=== PATIENT | female | born 1950 | race Caucasian/White ===

== ENCOUNTER 2021-03-13 21:38 | Inpatient (IN) | payer MEDICARE, OTHER ==
[~2021-03-13] VITALS: Ht 162.6 cm; Wt 78.0 kg
--- NOTE | 2021-03-13 21:41 | NUR ---
Patient BIB pvt ambulance from another acute facility, [facility]. A/Ox4, no acute psychiatric episodes observed upon arrival. Respiratory even and unlabored no cough no sob. No cardiovascular distress, denies any cp, palpitations. No n/v/d or any gu distress. Patient in bed at lowest position, sr upx2. Room cleared to suit for patient safety per protocol. Security unable to sit with patient at this time. user support analyst supervisor aware. Patient kept in line of sight of RN for observation at all time.
[2021-03-13] MEDS ORDERED: DIVA-78 PO (21:59)
[2021-03-13] MEDS ORDERED: TRAZ-182 PO (21:59)
[2021-03-13] MEDS ORDERED: APIX5TAB PO (21:59)
[2021-03-13] MEDS ORDERED: ESTR0.5T PO (21:59)
[2021-03-13] MEDS ORDERED: ACET-2154 PO ×2 (21:59)
[2021-03-13] MEDS ORDERED: ACET-2154 RC (21:59)
[2021-03-13] MEDS ORDERED: METO25TA6 PO (21:59)
[2021-03-13] MEDS ORDERED: ATOR20TA PO (21:59)
[2021-03-13] MEDS ORDERED: AMIO200T5 PO (21:59)
[2021-03-13] MEDS ORDERED: INSU100V11 (21:59)
[2021-03-13] MEDS ORDERED: ONDA4SYR IVP (21:59)
[2021-03-13] MEDS ORDERED: INSU100V11 SUBCUT (21:59)
[2021-03-13] MEDS ORDERED: ESCI20TA44 PO (21:59)
[2021-03-13] MEDS ORDERED: INSU100V7 SQ (21:59)
[2021-03-13] MEDS ORDERED: GLUC1KIT IM (21:59)
[2021-03-13] MEDS ORDERED: DEXT-164 PO (21:59)
--- NOTE | 2021-03-13 22:25 | NUR ---
Report given to KJ Bhatt
[2021-03-13] MEDS ORDERED: BLOOD SUGAR DIAGNOSTIC 1 EACH STRIP VI ONE (22:30)
[2021-03-13] MEDS ORDERED: ACETAMINOPHEN 325 MG TABLET PO PRN ×3 (22:30→23:30)
[2021-03-13] MEDS ORDERED: LORAZEPAM 1 MG TABLET PO PRN (22:30)
[2021-03-13] MEDS ORDERED: MAGNESIUM HYDROXIDE 30 ML LIQUID UDC PO PRN (22:30)
[2021-03-13] MEDS ORDERED: ZOLPIDEM 5 MG TABLET PO PRN (22:30)
[2021-03-13] MEDS ORDERED: MAG HYDROX/AL HYDROX/SIMETH 30 ML LIQUID UDC PO PRN (22:30)
--- NOTE | 2021-03-13 22:54 | NUR ---
Patient transported to MHU in stable condition.
--- NOTE | 2021-03-13 23:00 | NUR ---
Patient Rashida Eason admitted to MHU from ED@ 2250. Report received from KJ Al. Patient Awake & Oriented x3. Patient ambulatory with steady gate. No complaints of pain or discomfort. Patient denies any SOB or respiratory distress. Pacemaker in left chest. Skin is intact. PERRLA. Patient is continent with urine and bowels. Patient is able to verbalize all needs. Will continue to monitor closely.
[2021-03-13 23:02] VITALS: BP 123/55
[2021-03-13] MEDS ORDERED: DEXTROSE 50% 50 ML DISP.SYRIN IV PRN (23:30)
[2021-03-13] MEDS ORDERED: ACETAMINOPHEN 325 MG TABLET PO SCH (23:30)
[2021-03-14] MEDS: INSULIN REGULAR, HUMAN 300 UNIT/3 ML VIAL SQ PRN ×6 (00:49→21:00)
[2021-03-14] MEDS: BLOOD SUGAR DIAGNOSTIC 1 EACH STRIP VI SCH ×4 (06:38→20:57)
[2021-03-14 07:23] LABS: BASOPHILS # (AUTO) 0.1 K/uL (0.0-8.0); BASOPHILS % (AUTO) 1.2 % (0.0-2.0); EOSINOPHILS # (AUTO) 0.3 K/uL (0.0-0.7); EOSINOPHILS % (AUTO) 2.9 % (0.0-7.0); HEMATOCRIT 40.4 % (31.2-41.9); HEMOGLOBIN 13.4 g/dL (10.9-14.3); LYMPHOCYTES # (AUTO) 1.6 K/uL (20.0-40.0); LYMPHOCYTES % (AUTO) 14.4 % (20.5-51.5); MEAN CORPUSCULAR HGB CONC 33 g/dL (32.3-35.6); MEAN CORPUSCULAR VOLUME 87.5 fL (75.5-95.3); MONOCYTES # (AUTO) 1.3 K/uL (2.0-10.0); MONOCYTES % (AUTO) 11.2 % (0.0-11.0); NEUTROPHILS % (AUTO) 70.3 % (38.5-71.5); PLATELET COUNT (AUTO) 307 K/uL (179-408); RED BLOOD CELL COUNT(AUTO) 4.62 MIL/uL (3.63-4.92); WHITE BLOOD COUNT (AUTO) 11.3 K/uL (3.8-11.8)
[2021-03-14 07:30] VITALS: BP 104/53
[2021-03-14 07:38] LABS: BILIRUBIN,TOTAL 0.2 mg/dL (0.2-1.0); CREATININE 0.9 mg/dL (0.6-1.3); POTASSIUM 4.5 mmol/L (3.5-5.1)
[2021-03-14] MEDS: ESTRADIOL 1 MG TABLET PO SCH (09:25)
[2021-03-14] MEDS: AMIODARONE HCL 200 MG TABLET PO SCH ×2 (09:25→17:07)
[2021-03-14] MEDS: APIXABAN 5 MG TABLET PO SCH ×2 (09:26→17:08)
[2021-03-14] MEDS: METOPROLOL TARTRATE 25 MG TABLET PO SCH ×2 (09:26→17:07)
[2021-03-14] MEDS: ESCITALOPRAM OXALATE 10 MG TABLET PO SCH (10:11)
[2021-03-14] MEDS: DIVALPROEX ER 500 MG TAB.SR.24H PO SCH ×2 (10:11→21:02)
--- NOTE | 2021-03-14 10:13 | NUR ---
Firearms Report: Vegetable Loader Machine Operator completed and submitted a [employer] firearms report for 5150 grave disability certification. A copy of report has been placed in patient chart.
--- NOTE | 2021-03-14 11:12 | NUR ---
SW Family Contact: Patient's son Shawn ([phone]) is involved in patient's care. This SW contacted patient's son Shawn ([phone]) to discuss treatment and discharge plan. This SW left a voicemail.
--- NOTE | 2021-03-14 11:12 | NUR ---
Initial Discharge Plan: Patient will need a nursing facility or wants to go to a Motel. Patient's son Shawn ([phone]) is involved in patient's care. This SW contacted patient's son Shawn ([phone]) to discuss treatment and discharge plan. This SW left a voicemail. This SW will coordinate discharge plan with MD, treatment team, and family to coordinate discharge plan.
[2021-03-14] MEDS ORDERED: INSULIN REGULAR, HUMAN 300 UNIT/3 ML VIAL SQ ONE (12:15)
--- NOTE | 2021-03-14 12:22 | NUR ---
SW Family Contact: This SW contacted patient's cousin Chetna ([phone]) to discuss treatment and discharge plan and was unavailable at this time. Mailbox was full.
--- NOTE | 2021-03-14 12:24 | NUR ---
SW Family Contact: This SW contacted patient's son Shawn ([phone]) and left a voicemail to discuss discharge and treatment plan.
--- NOTE | 2021-03-14 13:00 | NUR ---
Patient's blood sugar 411. Patient report no signs of hyperglycemia. Patient is noncompliant with diabetic diet, she recently was eating a bowl of fruit. Patient was provided with education about diabetic diet and how diet affects blood sugar levels, able to verbalize understanding. Tessa Ledesma NP, notified. Orders given to administer insulin per sliding scale plus an additional 4 units, and to change sliding scale from mild to moderate. Orders noted and carried out.
[2021-03-14 15:45] VITALS: BP 110/52
[2021-03-14 20:10] VITALS: BP 143/66
[2021-03-14] MEDS: QUETIAPINE FUMARATE 25 MG TABLET PO SCH (21:02)
[2021-03-14] MEDS: ATORVASTATIN 20 MG TABLET PO SCH (21:02)
--- NOTE | 2021-03-15 02:06 | NUR ---
RECEIVED PATIENT IN ACTIVITY ROOM INTERACTING WITH PEERS. NOTED DEPRESSED BUT KEPT DRAWING ON A PIECE OF PAPER. REFUSED TO SAY WHEN ASKED IF SHE HAS SI/HI. BLOOD SUGAR CHECKS DONE AND INSULIN PER SLIDING SCALE WAS GIVEN AFTER A SNACK WAS GIVEN.NO HYPOGLYCEMIA NOTED. COMPLIANT WITH OTHER MEDS AND CARE. WILL CONTINUE TO MONITOR.
[2021-03-15] MEDS: BLOOD SUGAR DIAGNOSTIC 1 EACH STRIP VI SCH ×4 (06:37→20:34)
--- NOTE | 2021-03-15 06:50 | NUR ---
SLEPT FOR 6:30 HOURS. BLOOD SUGAR CHECK THIS MORNING WAS 298
[2021-03-15 07:30] VITALS: BP 128/55
[2021-03-15] MEDS: ESTRADIOL 1 MG TABLET PO SCH (08:54)
[2021-03-15] MEDS: ESCITALOPRAM OXALATE 10 MG TABLET PO SCH (08:55)
[2021-03-15] MEDS: METOPROLOL TARTRATE 25 MG TABLET PO SCH ×2 (08:55→17:00)
[2021-03-15] MEDS: AMIODARONE HCL 200 MG TABLET PO SCH (08:55)
[2021-03-15] MEDS: APIXABAN 5 MG TABLET PO SCH ×2 (08:57→17:00)
[2021-03-15] MEDS: INSULIN REGULAR, HUMAN 300 UNIT/3 ML VIAL SQ PRN ×4 (08:58→20:36)
[2021-03-15] MEDS: DIVALPROEX ER 500 MG TAB.SR.24H PO SCH ×2 (08:59→20:44)
--- NOTE | 2021-03-15 10:30 | NUR ---
SW Family Contact: This SW attempted to contact patient's cousin Chetna ([phone]) to discuss treatment and discharge plan and was unavailable at this time. Mailbox was full.
--- NOTE | 2021-03-15 10:31 | NUR ---
SW Family Contact: This SW contacted patient's son Shawn ([phone]) and left a voicemail for the second time to discuss discharge and treatment plan.
--- NOTE | 2021-03-15 13:12 | NUR ---
SW Family Contact: This SW spoke with patient's son Shawn ([phone]) who stated that he is unsure if pt gave his 401k money to a stranger that she was dating through Facebook. Son stated that he assumes that pt has been spending that money on herself and flying to [place] and going shopping. Son stated that pt does not have any money on her currently and possibly has $250. He reported that she might need a nursing facility. This SW will transfer this information to the treatment team.
--- NOTE | 2021-03-15 15:07 | NUR ---
SW Individual Therapy: hair worker met with patient for brief counseling to help address patients presenting problem disorganized thought content. Patient does appear to be disorganized. She appeared to be withdrawn and isolative did not want to talk to this SW. Patient was in bed with her blank covering her face and did not want to maintain proper eye contact. This SW unable to conduct therapy at this time.
[2021-03-15 15:45] VITALS: BP 116/45
[2021-03-15 20:12] VITALS: BP 121/49
[2021-03-15] MEDS: ATORVASTATIN 20 MG TABLET PO SCH (20:32)
[2021-03-15] MEDS: QUETIAPINE FUMARATE 25 MG TABLET PO SCH (20:32)
[2021-03-16] MEDS: BLOOD SUGAR DIAGNOSTIC 1 EACH STRIP VI SCH ×4 (06:19→20:37)
--- NOTE | 2021-03-16 06:25 | NUR ---
GPS: Pt.slept for 6.30 last night. Blood sugar now is 229mg/dl. Remains irritable and with labile mood. Re-directed prn. Safety emphasized. Will continue to monitor.
[2021-03-16 07:30] VITALS: BP 118/50
--- NOTE | 2021-03-16 07:30 | NUR ---
Received report from MICKEY Raya. All questions, comments, and concerns were addressed. Received patient awake, alert and oriented. Bed is in low and locked position.
[2021-03-16] MEDS: METOPROLOL TARTRATE 25 MG TABLET PO SCH ×2 (08:48→16:30)
[2021-03-16] MEDS: ESCITALOPRAM OXALATE 10 MG TABLET PO SCH (08:48)
[2021-03-16] MEDS: DIVALPROEX ER 500 MG TAB.SR.24H PO SCH ×2 (08:48→20:14)
[2021-03-16] MEDS: AMIODARONE HCL 200 MG TABLET PO SCH (08:49)
[2021-03-16] MEDS: ESTRADIOL 1 MG TABLET PO SCH (08:49)
[2021-03-16] MEDS: APIXABAN 5 MG TABLET PO SCH ×2 (08:49→16:25)
[2021-03-16] MEDS: INSULIN REGULAR, HUMAN 300 UNIT/3 ML VIAL SQ PRN ×4 (08:56→20:40)
--- NOTE | 2021-03-16 13:00 | NUR ---
BS 378. 15 units insulin administered per sliding scale. patient is showing no s/s of hyperglycemia. she is alert and oriented. patient provided with education about maintaining diabetic diet and not snacking between meals to prevent blood sugar spikes, patient able to verbalize understanding. patient educated about symptoms of hyperglycemia and instructed to inform staff if these occur, able to verbalize understanding.
--- NOTE | 2021-03-16 14:56 | NUR ---
SW Family Contact: This SW called patient's son Shawn ([phone]) and left a detailed voicemail if he was able to locate who the DPOA is. This SW requested to call back.
--- NOTE | 2021-03-16 15:06 | NUR ---
SW Note: This SW discussed discharge plan with pt and she stated that she is willing to go to a nursing facility. This SW will work with the doctor to figure out which nursing facility this SW can recommend.
--- NOTE | 2021-03-16 15:18 | NUR ---
SW Family Contact: This SW received patient's son Shawn ([phone]) voicemail who stated that there is no DPOA.
--- NOTE | 2021-03-16 15:29 | NUR ---
SW Family Contact: This SW spoke with patient's son Shawn ([phone]) who is agreeable with patient going to a nursing facility. He stated that as a family they have been dealing with her going in and out of facilities. Shawn shared some background of pt and shared that she had a stroke in 2012 and has had past trauma.
--- NOTE | 2021-03-16 15:31 | NUR ---
LOBITO Individual Therapy: submarine worker met with patient for brief counseling to help address patients presenting problem disorganized thought content. Patient appeared disorganized. She appeared with labile mood and was angry stating "I will not go back to [place]". LOBITO was unable to conduct therapy at this time.
[2021-03-16 16:00] VITALS: BP 104/41
--- NOTE | 2021-03-16 18:00 | NUR ---
BS 221. 6 units insulin administered per sliding scale. patient is showing no s/s of hyperglycemia. she is alert and oriented. patient provided with education about maintaining diabetic diet and not snacking between meals to prevent blood sugar spikes, patient able to verbalize understanding. patient educated about symptoms of hyperglycemia and instructed to inform staff if these occur, able to verbalize understanding.
--- NOTE | 2021-03-16 18:41 | NUR ---
patient is alert and oriented. she is cooperative, redirectable, noted with appropriate interaction. patient is guarded and withdrawn. patient denies SI/HI, denies AH/VH. patient is adherent with medication, no adverse reaction noted. patient is able to provide care for self independently. patient encouraged to participate in the unit groups and therapeutic milieu.
[2021-03-16 20:11] VITALS: BP 137/81
[2021-03-16] MEDS: QUETIAPINE FUMARATE 100 MG TABLET PO SCH (20:14)
[2021-03-16] MEDS: ATORVASTATIN 20 MG TABLET PO SCH (20:14)
[2021-03-16] MEDS ORDERED: QUETIAPINE FUMARATE 25 MG TABLET PO SCH (21:00)
[2021-03-17] MEDS: BLOOD SUGAR DIAGNOSTIC 1 EACH STRIP VI SCH ×4 (06:16→20:26)
[2021-03-17 07:30] VITALS: BP 151/69
[2021-03-17] MEDS: INSULIN REGULAR, HUMAN 300 UNIT/3 ML VIAL SQ PRN ×4 (08:20→20:29)
[2021-03-17] MEDS: DIVALPROEX ER 500 MG TAB.SR.24H PO SCH ×2 (08:24→20:03)
[2021-03-17] MEDS: ESCITALOPRAM OXALATE 10 MG TABLET PO SCH (08:24)
[2021-03-17] MEDS: METOPROLOL TARTRATE 25 MG TABLET PO SCH ×2 (08:25→16:29)
[2021-03-17] MEDS: ESTRADIOL 1 MG TABLET PO SCH (08:26)
[2021-03-17] MEDS: AMIODARONE HCL 200 MG TABLET PO SCH (08:26)
[2021-03-17] MEDS: APIXABAN 5 MG TABLET PO SCH ×2 (08:28→16:30)
[2021-03-17 16:00] VITALS: BP 121/49
[2021-03-17 19:54] VITALS: BP 126/51
[2021-03-17] MEDS: QUETIAPINE FUMARATE 100 MG TABLET PO SCH (20:03)
[2021-03-17] MEDS: ATORVASTATIN 20 MG TABLET PO SCH (20:03)
[2021-03-18] MEDS: BLOOD SUGAR DIAGNOSTIC 1 EACH STRIP VI SCH ×4 (06:22→20:10)
[2021-03-18] MEDS: INSULIN REGULAR, HUMAN 300 UNIT/3 ML VIAL SQ PRN ×4 (08:09→20:12)
[2021-03-18] MEDS: ESTRADIOL 1 MG TABLET PO SCH (08:16)
[2021-03-18] MEDS: AMIODARONE HCL 200 MG TABLET PO SCH (08:16)
[2021-03-18] MEDS: ESCITALOPRAM OXALATE 10 MG TABLET PO SCH (08:17)
[2021-03-18] MEDS: DIVALPROEX ER 500 MG TAB.SR.24H PO SCH ×2 (08:17→20:03)
[2021-03-18] MEDS: METOPROLOL TARTRATE 25 MG TABLET PO SCH ×2 (08:17→18:02)
[2021-03-18] MEDS: APIXABAN 5 MG TABLET PO SCH ×2 (08:25→18:03)
[2021-03-18 11:14] VITALS: BP 106/56
--- NOTE | 2021-03-18 11:25 | NUR ---
LOBITO PC Hearing: Patient had 5250 probable cause hearing today and it was upheld for grave disability.
[2021-03-18 17:00] VITALS: BP 112/58
[2021-03-18] MEDS: QUETIAPINE FUMARATE 100 MG TABLET PO SCH (20:03)
[2021-03-18] MEDS: ATORVASTATIN 20 MG TABLET PO SCH (20:03)
[2021-03-18 20:25] VITALS: BP 128/50
[2021-03-18] MEDS ORDERED: INSULIN GLARGINE,HUM 300 UNITS/3 ML CARTRIDGE SQ SCH (21:00)
--- NOTE | 2021-03-19 05:53 | NUR ---
GPS: Remain calm and cooperative. no agitation noted. no behavior issue noted. resting in bed comfortably. continue plan of care.
[2021-03-19] MEDS: BLOOD SUGAR DIAGNOSTIC 1 EACH STRIP VI SCH ×4 (06:17→21:11)
--- NOTE | 2021-03-19 06:21 | NUR ---
slept 6 hrs through the night.
[2021-03-19 07:30] VITALS: BP 121/53
[2021-03-19] MEDS: DIVALPROEX ER 500 MG TAB.SR.24H PO SCH ×2 (08:38→21:11)
[2021-03-19] MEDS: ESCITALOPRAM OXALATE 10 MG TABLET PO SCH (08:39)
[2021-03-19] MEDS: METOPROLOL TARTRATE 25 MG TABLET PO SCH ×2 (08:39→17:35)
[2021-03-19] MEDS: AMIODARONE HCL 200 MG TABLET PO SCH (08:40)
[2021-03-19] MEDS: ESTRADIOL 1 MG TABLET PO SCH (08:40)
[2021-03-19] MEDS: APIXABAN 5 MG TABLET PO SCH ×2 (08:41→17:34)
[2021-03-19] MEDS: INSULIN REGULAR, HUMAN 300 UNIT/3 ML VIAL SQ PRN ×4 (08:43→21:19)
[2021-03-19 16:00] VITALS: BP 155/55
--- NOTE | 2021-03-19 17:30 | NUR ---
Gps/Production Staff Worker- Noted patient small amount of emesis during dinner , claimed the soup made her sick, was able to complete her dinner after. Stayed in the dinning room most of the afternoon . Patient still mentioning , her Fiancee here in [place].
[2021-03-19 20:00] VITALS: BP 167/77
[2021-03-19] MEDS ORDERED: INSULIN GLARGINE,HUM 300 UNITS/3 ML CARTRIDGE SQ SCH (21:00)
[2021-03-19] MEDS: ATORVASTATIN 20 MG TABLET PO SCH (21:11)
[2021-03-19] MEDS: QUETIAPINE FUMARATE 100 MG TABLET PO SCH (21:11)
[2021-03-20] MEDS: BLOOD SUGAR DIAGNOSTIC 1 EACH STRIP VI SCH ×4 (06:55→20:25)
[2021-03-20] MEDS: INSULIN REGULAR, HUMAN 300 UNIT/3 ML VIAL SQ PRN ×4 (07:49→20:32)
[2021-03-20] MEDS: ESCITALOPRAM OXALATE 10 MG TABLET PO SCH (08:08)
[2021-03-20] MEDS: ESTRADIOL 1 MG TABLET PO SCH (08:08)
[2021-03-20] MEDS: AMIODARONE HCL 200 MG TABLET PO SCH (08:09)
[2021-03-20] MEDS: DIVALPROEX ER 500 MG TAB.SR.24H PO SCH ×2 (08:09→20:24)
[2021-03-20] MEDS: METOPROLOL TARTRATE 25 MG TABLET PO SCH ×2 (08:12→16:48)
[2021-03-20 08:25] VITALS: BP 116/67
[2021-03-20] MEDS: APIXABAN 5 MG TABLET PO SCH ×2 (08:53→16:50)
[2021-03-20] MEDS: INSULIN GLARGINE,HUM 300 UNITS/3 ML CARTRIDGE SQ SCH ×2 (11:30→20:33)
[2021-03-20 20:13] VITALS: BP 118/64
[2021-03-20] MEDS: ATORVASTATIN 20 MG TABLET PO SCH (20:24)
[2021-03-20] MEDS: QUETIAPINE FUMARATE 100 MG TABLET PO SCH (20:24)
--- NOTE | 2021-03-20 21:00 | NUR ---
Received pt resting in bed, talking on the phone. No acute distress noted. Denies pain/ discomfort. Denies SI. Accucheck 230, insulin given as per sliding scale. Due meds given as ordered. Safety measures maintained. Will continue to monitor.
[2021-03-21] MEDS: BLOOD SUGAR DIAGNOSTIC 1 EACH STRIP VI SCH ×4 (06:44→21:29)
[2021-03-21 07:30] VITALS: BP 149/68
[2021-03-21] MEDS: DIVALPROEX ER 500 MG TAB.SR.24H PO SCH ×2 (08:27→20:56)
[2021-03-21] MEDS: ESCITALOPRAM OXALATE 10 MG TABLET PO SCH (08:28)
[2021-03-21] MEDS: AMIODARONE HCL 200 MG TABLET PO SCH (08:28)
[2021-03-21] MEDS: ESTRADIOL 1 MG TABLET PO SCH (08:29)
[2021-03-21] MEDS: METOPROLOL TARTRATE 25 MG TABLET PO SCH ×2 (08:30→16:52)
[2021-03-21] MEDS: APIXABAN 5 MG TABLET PO SCH ×2 (08:40→16:51)
[2021-03-21] MEDS: INSULIN GLARGINE,HUM 300 UNITS/3 ML CARTRIDGE SQ SCH ×2 (08:41→21:33)
[2021-03-21] MEDS: INSULIN REGULAR, HUMAN 300 UNIT/3 ML VIAL SQ PRN ×4 (08:42→21:34)
--- NOTE | 2021-03-21 12:07 | NUR ---
SNF Referral: This SW faxed patient's clinicals to Admin Cathie ([phone]) from [facility] for possible placement. This SW faxed H & P, progress notes, and medication list.
[2021-03-21 15:03] VITALS: BP 132/47
--- NOTE | 2021-03-21 15:20 | NUR ---
SNF Contact: This SW received a call from Admin Cathie ([phone]) who stated that pt is accepted at [facility].
--- NOTE | 2021-03-21 15:20 | NUR ---
LOBITO Individual Therapy: expeller worker met with patient for brief counseling to help address patient's presenting problem disorganized thought content. Patient continued to present with disorganized thought content. Patient was expressed that she is "late for her job". Patient unable to have proper conversation at this time.
[2021-03-21 20:22] VITALS: BP 136/62
[2021-03-21] MEDS: ATORVASTATIN 20 MG TABLET PO SCH (20:56)
[2021-03-21] MEDS: QUETIAPINE FUMARATE 100 MG TABLET PO SCH (20:56)
[2021-03-22 07:30] VITALS: BP 108/57
[2021-03-22] MEDS: BLOOD SUGAR DIAGNOSTIC 1 EACH STRIP VI SCH ×4 (07:53→20:57)
[2021-03-22] MEDS: INSULIN REGULAR, HUMAN 300 UNIT/3 ML VIAL SQ PRN ×4 (07:56→20:59)
[2021-03-22] MEDS: ESCITALOPRAM OXALATE 10 MG TABLET PO SCH (08:26)
[2021-03-22] MEDS: ESTRADIOL 1 MG TABLET PO SCH (08:26)
[2021-03-22] MEDS: DIVALPROEX ER 500 MG TAB.SR.24H PO SCH ×2 (08:26→20:56)
[2021-03-22] MEDS: AMIODARONE HCL 200 MG TABLET PO SCH (08:27)
[2021-03-22] MEDS: APIXABAN 5 MG TABLET PO SCH ×2 (08:30→17:23)
[2021-03-22] MEDS: METOPROLOL TARTRATE 25 MG TABLET PO SCH ×2 (09:15→17:19)
[2021-03-22] MEDS: INSULIN GLARGINE,HUM 300 UNITS/3 ML CARTRIDGE SQ SCH ×2 (09:17→21:14)
--- NOTE | 2021-03-22 10:52 | NUR ---
SW Family Contact: This SW contacted patient's son Shawn ([phone]) and left a voicemail that patient is accepted at [facility].
--- NOTE | 2021-03-22 11:48 | NUR ---
SW SNF Referral: This SW faxed patient's clinicals to Alba carranza from [facility] ([phone]) for placement option. This SW faxed H & P, progress notes, and medication list.
--- NOTE | 2021-03-22 15:01 | NUR ---
NO S/S OF HYPO/HYPERGLYCEMIC REACTIONS AT THIS TIME COMPLIANT WITH MEDICATIONS AND CARE GETS EASILY IRRITATED BUT IS COOPERATIVE ENCOURAGED TO GO INTO THE D/ROOM AND PATICIPATE AND SHE EXPRESSED UNDERSTANDING.
[2021-03-22 15:21] VITALS: BP 122/49
--- NOTE | 2021-03-22 18:29 | NUR ---
Patient is left sitting on the side of bed. Pt complained of tooth ache from chipped crown. Gave Tylenol. Safety implemented. Will endorse.
[2021-03-22 20:24] VITALS: BP 123/48
[2021-03-22] MEDS: QUETIAPINE FUMARATE 100 MG TABLET PO SCH (20:56)
[2021-03-22] MEDS: ATORVASTATIN 20 MG TABLET PO SCH (21:13)
--- NOTE | 2021-03-23 01:46 | NUR ---
PATIENT NOTED SITTING IN THE DAY ROOM. SHE IS CALM AT THIS TIME. SHE WAS OFFERED AMBIEN FOR INSOMNIA, BUT PATIENT REFUSED. WILL CONTINUE TO MONITOR,
[2021-03-23] MEDS: BLOOD SUGAR DIAGNOSTIC 1 EACH STRIP VI SCH ×4 (07:09→20:43)
[2021-03-23 07:30] VITALS: BP 126/70
[2021-03-23] MEDS: APIXABAN 5 MG TABLET PO SCH ×2 (08:15→17:46)
[2021-03-23] MEDS: ESCITALOPRAM OXALATE 10 MG TABLET PO SCH (08:15)
[2021-03-23] MEDS: DIVALPROEX ER 500 MG TAB.SR.24H PO SCH ×2 (08:15→20:43)
[2021-03-23] MEDS: AMIODARONE HCL 200 MG TABLET PO SCH (08:15)
[2021-03-23] MEDS: ESTRADIOL 1 MG TABLET PO SCH (08:16)
[2021-03-23] MEDS: INSULIN GLARGINE,HUM 300 UNITS/3 ML CARTRIDGE SQ SCH (08:17)
[2021-03-23] MEDS: INSULIN REGULAR, HUMAN 300 UNIT/3 ML VIAL SQ PRN ×4 (08:19→20:45)
[2021-03-23] MEDS: METOPROLOL TARTRATE 25 MG TABLET PO SCH ×2 (08:27→17:50)
--- NOTE | 2021-03-23 11:33 | NUR ---
SW Note: This SW reported to pt that she got accepted to [facility] and she would want to go there.
--- NOTE | 2021-03-23 11:33 | NUR ---
SW SNF Contact: This SW spoke with Alba carranza from [facility] ([phone]) who stated pt is accepted.
--- NOTE | 2021-03-23 11:48 | NUR ---
SW Family Contact: This SW contacted patient's son Shawn ([phone]) and left a voicemail that pt will be discharged 03/24 to [facility] instead because patient wanted to go there.
--- NOTE | 2021-03-23 14:24 | NUR ---
SW Individual Therapy: binding bench worker met with patient for brief counseling to help address patient's presenting problem disorganized thought content. Patient continued to present with somewhat disorganized thought content. Patient was cooperative with this verse writer while conducting therapy. She was able to express her goals. 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 This SW actively listened and provided emotional support.
[2021-03-23 16:00] VITALS: BP 121/55
[2021-03-23] MEDS: ATORVASTATIN 20 MG TABLET PO SCH (20:43)
[2021-03-23] MEDS: QUETIAPINE FUMARATE 100 MG TABLET PO SCH (20:43)
[2021-03-23 20:51] VITALS: BP 166/65
[2021-03-23] MEDS ORDERED: INSULIN GLARGINE,HUM 300 UNITS/3 ML CARTRIDGE SQ SCH (21:00)
[2021-03-24] MEDS: BLOOD SUGAR DIAGNOSTIC 1 EACH STRIP VI SCH ×2 (06:40→12:08)
[2021-03-24 07:30] VITALS: BP 136/52
--- NOTE | 2021-03-24 07:57 | NUR ---
SW Discharge Note: Patient will be discharged to care home facility, [facility] located at [address], [place] [address]; ([phone]) via ambulance transportation at 1PM. Team Assembler spoke with Alba, Tassel Clipper at [facility] ([phone]), and he confirmed that patient will be accepted at their facility today. Patients son Shawn ([phone]) is aware and agreeable with discharge. Patient is alert and oriented x3. Patient is not able to plan for self-care at this time but is willing to accept care provided for her at the facility. Patient is aware and agreeable with discharge plans. Patient denies suicidal or homicidal ideation. Patient denies visual/auditory hallucinations. Patient will follow-up with (Psychiatrist) Dr. Arellano and (Chemical Reclamation Equipment Operator) Dr. Dennis at [facility]. Patient signed the homeless waiver upon discharge and a copy was placed in the chart. Homeless resources were provided and include [address] information line for shelters and homeless resources. A copy of all resources given to patient was also placed in the chart. Patient presented with euthymic mood and congruent affect.
[2021-03-24] MEDS: INSULIN REGULAR, HUMAN 300 UNIT/3 ML VIAL SQ PRN ×2 (08:18→12:00)
[2021-03-24 08:24] VITALS: BP 132/52
[2021-03-24] MEDS: METOPROLOL TARTRATE 25 MG TABLET PO SCH (08:24)
[2021-03-24] MEDS: DIVALPROEX ER 500 MG TAB.SR.24H PO SCH (08:24)
[2021-03-24] MEDS: ESCITALOPRAM OXALATE 10 MG TABLET PO SCH (08:24)
[2021-03-24] MEDS: ESTRADIOL 1 MG TABLET PO SCH (08:24)
[2021-03-24] MEDS: AMIODARONE HCL 200 MG TABLET PO SCH (08:25)
[2021-03-24] MEDS: APIXABAN 5 MG TABLET PO SCH (08:32)
--- NOTE | 2021-03-24 13:03 | NUR ---
Gps/Email Marketing Coordinator- Called [facility] , report was given to Beth Mendoza. Patient was well informed of her discharge plan.pPatient will be picked up at 1330 ..
--- NOTE | 2021-03-24 14:35 | NUR ---
Gps/Regasification Plant Operator- Discharged to [facility] via Ambulance. All belongings /valuables given back to patient. Discharged in good spirit, no complaints noted.
== END 2021-03-24 14:35 | DRG 885 ==
LOC: ER 21:38 → GPS 22:18
PROVIDERS: ADMIT Psychiatry & Neurology Psychiatry; ATTEND Nurse Practitioner Acute Care
DX: F31.64 Bipolar disorder, current episode mixed, severe, with psychotic features (principal); E11.65 Type 2 diabetes mellitus with hyperglycemia; I21.A1 Myocardial infarction type 2; F23 Brief psychotic disorder; I48.0 Paroxysmal atrial fibrillation; Z95.0 Presence of cardiac pacemaker; Z79.01 Long term (current) use of anticoagulants; Z79.4 Long term (current) use of insulin; Z20.822 Contact with and (suspected) exposure to COVID-19; I10 Essential (primary) hypertension; I25.2 Old myocardial infarction; Z73.6 Limitation of activities due to disability; F29 Unspecified psychosis not due to a substance or known physiological condition; R53.1 Weakness; F43.10 Post-traumatic stress disorder, unspecified
CPT/HCPCS: 36415; 80164; 85025; 87086; 93005; A4663; J1815